=== PATIENT | female | born 1970 | race American Indian/Alaskan Native ===

== ENCOUNTER 2017-06-04 09:25 | Outpatient (CLI) | payer BC ==
[2017-06-04 10:25] LABS: Blood Urea Nitrogen 10 mg/dL (7-17)
[2017-06-04] MEDS ORDERED: NACL ONE (11:33)
--- NOTE | 2017-06-04 12:39 | Cat Scan Report ---
CT CHEST, ABDOMEN AND PELVIS WITH CONTRAST INDICATION: Malignant neoplasm of colon. COMPARISON: 11/13/2016 PET/CT. FINDINGS: Chest, abdomen and pelvis CT performed following intravenous administration of 100 cc of Omnipaque 300. Oral contrast also given. CHEST: Unremarkable heart and great vessels. No effusions or size significant adenopathy. Clear lungs. New right-sided chest port tip in the right atrium. Nonspecific distal esophageal wall prominence/thickening, not excluded for gastroesophageal reflux and/or hiatal hernia, amongst others. ABDOMEN: Subtle new diffuse fatty hepatic infiltration possible. Liver, spleen, gallbladder, pancreas, adrenals, nonaneurysmal abdominal aorta, IVC and kidneys otherwise appear within normal limits. Nonopacified GI tract evaluation limited, though grossly nonobstructive. Mild to moderate colonic stool/possible constipation. No definite significant adenopathy or ascites. PELVIS: Sigmoid anastomosis again seen. Rectosigmoid stool. Unremarkable urinary bladder. Normal uterine size. Small bilateral follicular cysts measuring up to 2.2 cm on the left. No significant free fluid or adenopathy. Healed midline ventral incision. Mild bilateral sclerosis along iliac aspects of the SI joints inferiorly. Otherwise unremarkable bones. CONCLUSION: No acute chest, abdomen and pelvic CT abnormality with few incidental findings, including sigmoid anastomosis, interval chest port placement and possible fatty liver development, amongst others, as described. Please correlate. Thank you for the opportunity to participate in this patient's care.
== END 2017-06-04 09:26 | disposition home or self-care (01) ==
LOC: CT 09:25
PROVIDERS: ATTEND Internal Medicine Hematology
DX: C18.9 Malignant neoplasm of colon, unspecified (principal); N83.02 Follicular cyst of left ovary; K63.89 Other specified diseases of intestine
CPT/HCPCS: 36415; 71260; 74177; 82565; 84520; Q9967

== ENCOUNTER 2017-08-12 08:25 | Outpatient (CLI) | payer BC ==
--- NOTE | 2017-08-12 13:20 | Cat Scan Report ---
CT chest, abdomen, pelvis with contrast: Colon cancer. Following IV and oral contrast administration sections are obtained transversely from the thoracic inlet to the ischium with coronal and sagittal 2-D reformatted images. Comparison is made to prior exams in May 2017. The chest wall is unremarkable. No axillary, hilar, or mediastinal adenopathy. Central airways are patent. The visualized pulmonary arteries show no filling defect. No pulmonary nodules and no pleural disease identified. There is a right-sided port. No change from prior study. The abdominal and retroperitoneal organs are unremarkable. The abdominal aorta is normal in size and contour. No obvious mesenteric or periaortic adenopathy. The partially opacified bowel is generally unremarkable. There is an intact sigmoid anastomosis related to colon resection. The uterus is mildly enlarged and inhomogeneous. There are adjacent or a single bilobed cyst in the left ovary with a combined size of approximately 4.5 cm. Compared to her prior exam the left ovarian cyst has enlarged but the findings are otherwise essentially unchanged. The osseous structures appear generally normal in both locations. Impression: Post sigmoid resection. No metastases identified and no significant interval changes from prior study.
== END 2017-08-12 08:26 | disposition home or self-care (01) ==
LOC: SPVIMAG 08:25
PROVIDERS: ATTEND Internal Medicine Hematology
DX: C18.9 Malignant neoplasm of colon, unspecified (principal); N85.2 Hypertrophy of uterus; N83.292 Other ovarian cyst, left side
CPT/HCPCS: 71260; 74177; Q9967

== ENCOUNTER 2017-11-12 08:30 | Outpatient (CLI) | payer BC ==
[2017-11-12 09:16] LABS: Blood Urea Nitrogen 10 mg/dL (7-17)
--- NOTE | 2017-11-12 12:07 | Cat Scan Report ---
CT CHEST WITH CONTRAST: HISTORY: Malignant neoplasm of colon. COMPARISON: 08/12/17. TECHNIQUE: Helical CT in 1.25mm intervals following IV contrast. Sagittal and coronal reformatted images. FINDINGS: Thyroid gland: Normal. Tracheobronchial tree: Normal. Esophagus: Normal. Heart: Normal. Pericardium: Normal. Mediastinum: Normal. Lung Lao: Normal. Pleural Spaces: Normal. Musculoskeletal: Normal. IMPRESSION: Unremarkable CT chest with contrast. No evidence for metastatic disease or acute process. No change since 08/12/17.
--- NOTE | 2017-11-12 12:14 | Cat Scan Report ---
CT ABDOMEN PELVIS WITH CONTRAST: HISTORY: Malignant neoplasm of colon. COMPARISON: 08/12/17. TECHNIQUE: Helical CT in 1.25mm intervals following IV contrast. Sagittal and coronal reconstructions. FINDINGS: Lung bases: Normal. Liver: Normal. Biliary system: Normal. Pancreas: Normal. Spleen: Normal. Kidneys/ureters/bladder: Normal. Adrenal glands: Normal. Aorta: Normal. Intestines: Surgical suture line near the rectosigmoid junction is again identified. No recurrent mass in this area is noted. No focal bowel wall thickening, inflammation or obstruction. Appendix: Not confidently identified. Pelvic viscera: The uterus is anteverted. Subtle, small intramural fibroids are suspected. The ovaries are unremarkable. Left ovarian cysts have resolved since the previous exam. Ascites: None. Adenopathy: None. Musculoskeletal: No suspicious bony lesion or fracture is identified. IMPRESSION: No evidence for disease recurrence or metastasis. Stable surgical changes near the rectosigmoid junction. Left ovarian cysts have resolved since 08/12/17. Mild uterine fibroid disease is suspected.
== END 2017-11-12 08:31 | disposition home or self-care (01) ==
LOC: SPVWC 08:30 → CT 08:31
PROVIDERS: ATTEND Internal Medicine Hematology
DX: C18.9 Malignant neoplasm of colon, unspecified (principal); N85.4 Malposition of uterus
CPT/HCPCS: 36415; 71260; 74177; 82565; 84520; Q9967

== ENCOUNTER 2018-02-12 09:00 | Outpatient (CLI) | payer BC ==
--- NOTE | 2018-02-12 14:01 | Cat Scan Report ---
CT CHEST, ABDOMEN AND PELVIS WITH CONTRAST: 02/12/18 08:15:00 CLINICAL: Colon cancer followup. COMPARISON: 11/12/17 TECHNIQUE: Volumetric acquisition and 1.25 millimeter scan reconstructions after the uneventful intravenous injection of 100 cc of Omnipaque 300. Consent was obtained prior to the administration of the contrast. Oral contrast was also given. FINDINGS: Chest: The lungs are clear. No pulmonary nodule or mass. However, the right apex is not entirely included on the exam. Normal aorta, heart and pulmonary arteries. A right Evbhvc-e-Teld tip is in the right atrium. Normal esophagus and trachea. No mediastinal or hilar lymphadenopathy.No axillary or supraclavicular lymphadenopathy. Abdomen: Normal liver, gallbladder and bile ducts. Normal stomach, duodenum, pancreas and spleen. Normal adrenal glands and kidneys. The renal collecting systems and ureters are nondilated. Normal aorta and inferior vena cava. No mass or lymphadenopathy.No ascites.The small bowel is normal. Normal ascending, transverse and descending colon. Normal appendix. Pelvis: Normal rectum and a normal anastomosis at the rectosigmoid junction. The sigmoid colon is normal. Normal uterus measuring 10.0 x 6.5 x 7.0 cm. Normal ovaries. A dominant follicle of the right ovary measures 2.6 cm. A dominant follicle the left ovary measures 1.8 cm. No adnexal mass or free fluid. Normal urinary bladder and rectum.. Bone windows demonstrate no suspicious bone lesion. IMPRESSION:1. Normal chest. However, the patient has been asked to return for a noncontrast CT of the right lung apex since the right lung was not entirely included on this exam. 2. Negative abdomen and pelvis status post partial colon resection. 3. No evidence of disease recurrence or metastasis.
== END 2018-02-12 09:01 | disposition home or self-care (01) ==
LOC: SPVIMAG 09:00
PROVIDERS: ATTEND Internal Medicine Hematology
DX: C18.9 Malignant neoplasm of colon, unspecified (principal); Z98.890 Other specified postprocedural states
CPT/HCPCS: 71260; 74177; Q9967; 71250

== ENCOUNTER 2019-08-31 10:03 | Outpatient (CLI) | payer BC ==
[2019-08-31 12:12] LABS: Blood Urea Nitrogen 11 mg/dL (7-17)
--- NOTE | 2019-08-31 13:31 | Cat Scan Report ---
CT CHEST WITH CONTRAST INDICATION / CLINICAL INFORMATION: C18.0 MALIGNANT NEOPLASM OF COLON. TECHNIQUE: Axial CT images were obtained through the chest after IV contrast. Sagittal and coronal reformatted i mages. All CT scans at this location are performed using CT dose reduction for ALARA by means of auto mated exposure control. COMPARISON: 03/04/2019 FINDINGS: HEART: No significant abnormality. THORACIC AORTA: No significant abnormality. MEDIASTINUM and RUPAL: No significant abnormality. LUNGS: No acute air space or interstitial disease. PLEURA: No significant pleural effusion. No pneumothorax. SKELETAL SYSTEM: No significant abnormality. UPPER ABDOMEN: No significant abnormality. ADDITIONAL FINDINGS: None. IMPRESSION: Unremarkable CT chest with contrast. No evidence for metastatic disease to the chest. Signer Name: Kenneth Lam Jr, MD Signed: 08/31/2019 1:27 PM Workstation Name: [id number]
--- NOTE | 2019-08-31 14:08 | Cat Scan Report ---
CT ABDOMEN AND PELVIS WITH CONTRAST HISTORY: C18.9 MALIGNANT NEOPLASM OF COLON UNSPECIFIED COMPARISON: 03/04/2019 TECHNIQUE: Axial CT images were obtained through the abdomen and pelvis after 100 cc of Omnipaque 300 intravenously. Sagittal and coronal reformatted images. All CT scans at this location are performed using CT dose reduction for ALARA by means of automated exposure control. FINDINGS: CT ABDOMEN: Lung Bases: Clear. Liver: No significant abnormality. Biliary: No significant abnormality. Spleen: No significant abnormality. Unenlarged. Pancreas: No significant abnormality. Adrenals: No significant abnormality. Kidneys: No significant abnormality. Lymphatics: No lymphadenopathy. Vasculature: No significant abnormality. Bowel/Peritoneum: Surgical suture line is identified in the sigmoid colon. No evidence for local recu rrence. The remaining bowel loops are unremarkable. No evidence for obstruction or focal inflammation . Normal appendix. CT PELVIS: : The uterus is mildly enlarged with multiple small enhancing fibroids measuring up to 2 cm. The ad nexa are unremarkable. The bladder and distal ureters are within normal limits. Osseous Structures: No suspicious bony lesion. Additional Findings: None IMPRESSION: No evidence for disease recurrence or metastasis in the abdomen and pelvis. Stable findings since 02/14. Signer Name: Kenneth Lam Jr, MD Signed: 08/31/2019 2:03 PM Workstation Name: [id number]
== END 2019-08-31 10:04 | disposition home or self-care (01) ==
LOC: CT 10:03
PROVIDERS: ATTEND Internal Medicine Hematology
DX: C18.9 Malignant neoplasm of colon, unspecified (principal)
CPT/HCPCS: 36415; 71260; 74177; 82565; 84520; Q9967

== ENCOUNTER 2020-03-05 09:09 | Outpatient (CLI) | payer BC ==
[2020-03-05 09:57] LABS: Blood Urea Nitrogen 11 mg/dL (7-17)
--- NOTE | 2020-03-05 11:41 | Cat Scan Report ---
CT chest, abdomen, and pelvis with/without contrast INDICATION : C18.9Malignant neoplasm of colon, unspecified, colon cancer restaging exam TECHNIQUE: 100 mL of intravenous contrast administered.. All CT scans at this location are performe d using CT dose reduction for ALARA by means of automated exposure control. COMPARISON: CT chest, abdomen, and pelvis from 08/31/2019 FINDINGS: Chest: The heart and great vessels appear normal with no pathologic mediastinal adenopathy. Likewise no pathologic axillary adenopathy. The lungs are clear. No acute osseous abnormality, metastatic dis ease, or significant DJD. Abdomen/pelvis: Surgical resection and anastomotic change again seen in the sigmoid colon distally w ith intact surgical site and no dehiscence. No small bowel obstruction, residual soft tissue mass, or surrounding pathologic adenopathy. The liver is mildly enlarged with no mass or metastatic disease. The gallbladder, spleen, pancreas, a drenals, kidneys, and proximal GI tract appear unremarkable. Urinary bladder is unremarkable. Multiple uterine fibroids again noted. No pelvic free fluid. A pessa ry device is in place within the vagina. No acute colonic abnormality identified. IMPRESSION: Stable exam with no metastatic disease identified. Signer Name: Dhiraj Ho MD Signed: 03/05/2020 11:36 AM Workstation Name: [id number]
== END 2020-03-05 09:10 | disposition home or self-care (01) ==
LOC: CT 09:09
PROVIDERS: ATTEND Internal Medicine Hematology
DX: C18.9 Malignant neoplasm of colon, unspecified (principal); R16.0 Hepatomegaly, not elsewhere classified; Z98.0 Intestinal bypass and anastomosis status; D25.9 Leiomyoma of uterus, unspecified; N80.4 Endometriosis of rectovaginal septum and vagina
CPT/HCPCS: 36415; 71260; 74177; 82565; 84520; Q9967

== ENCOUNTER 2020-12-10 10:18 | Outpatient (CLI) | payer BC ==
[2020-12-10 12:22] LABS: Blood Urea Nitrogen 10 mg/dL (7-17)
--- NOTE | 2020-12-10 13:23 | Cat Scan Report ---
CT CHEST, ABDOMEN, AND PELVIS WITH IV CONTRAST INDICATION / CLINICAL INFORMATION: COLON CANER. TECHNIQUE: Axial CT images were obtained through the chest, abdomen, and pelvis after IV contrast. All CT scans at this location are performed using CT dose reduction for ALARA by means of automated exposure contr ol. COMPARISON: 05/31/2020. FINDINGS: HEART: No significant abnormality. THORACIC AORTA: No significant abnormality. MEDIASTINUM and RUPAL: No significant abnormality. LUNGS: No acute air space or interstitial disease. Partially calcified subpleural nodule right upper lobe measures 4 mm and is stable since prior exam. PLEURA: No significant pleural effusion. No pneumothorax. ADDITIONAL CHEST FINDINGS: None. LIVER: No significant abnormality. GALLBLADDER: No significant abnormality. BILE DUCTS: No significant abnormality. PANCREAS: No significant abnormality. SPLEEN: No significant abnormality. ADRENALS: No significant abnormality. RIGHT KIDNEY / URETER: No significant abnormality. LEFT KIDNEY / URETER: No significant abnormality. STOMACH and SMALL BOWEL: No significant abnormality. No mechanical bowel obstruction. COLON: Postsurgical resection of the sigmoid colon with retained suture material stable since prior e xam. No recurrent soft tissue lesion or abnormal enhancement. APPENDIX: No significant abnormality. PERITONEUM: No free fluid. No free air. No fluid collection. LYMPH NODES: No significant adenopathy. Tiny scattered mesenteric lymph nodes are not enlarged accord ing to CT size criteria. AORTA and ARTERIES: No significant abnormality. IVC and VEINS: No significant abnormality. URINARY BLADDER: No significant abnormality. REPRODUCTIVE ORGANS: Enlarged uterus with numerous uterine fibroids unchanged from prior exam. ADDITIONAL FINDINGS: None. SKELETAL SYSTEM: No aggressive osseous lesions. IMPRESSION: 1. Stable exam when compared to prior dated 05/31/2020. Please see above for full details. Signer Name: Jose Jaramillo MD Signed: 12/10/2020 1:19 PM Workstation Name: [id number]
== END 2020-12-10 10:19 | disposition home or self-care (01) ==
LOC: CT 10:18
PROVIDERS: ATTEND Internal Medicine Hematology
DX: C18.9 Malignant neoplasm of colon, unspecified (principal); R91.1 Solitary pulmonary nodule
CPT/HCPCS: 36415; 71260; 74177; 82565; 84520; Q9967

== ENCOUNTER 2021-06-24 10:07 | Outpatient (CLI) | payer BC ==
[2021-06-24 11:10] LABS: Blood Urea Nitrogen 10 mg/dL (7-17)
--- NOTE | 2021-06-24 13:45 | Cat Scan Report ---
CT CHEST, ABDOMEN, AND PELVIS WITH CONTRAST INDICATION / CLINICAL INFORMATION: MALIGNANT NEOPLASM OF COLON/HX COLON CANCER OMNI 300 100 ML. TECHNIQUE: Axial CT images were obtained through the chest, abdomen, and pelvis after IV contrast. Al l CT scans at this location are performed using CT dose reduction for ALARA by means of automated exp osure control. COMPARISON: CT abdomen and pelvis 12/10/2020 FINDINGS: HEART: No significant abnormality. CORONARY ARTERY CALCIFICATION: None. THORACIC AORTA: No significant abnormality. MEDIASTINUM / RUPAL: No significant abnormality. PLEURA: No pleural effusion. No pneumothorax. LUNGS: No acute air space or interstitial disease. ADDITIONAL CHEST FINDINGS: None. LIVER: There is a subtle round 3.3 x 3.4 cm mildly enhancing mass seen in the posterior right hepatic lobe on series 3 image 28. GALLBLADDER: No significant abnormality. BILE DUCTS: No significant abnormality. PANCREAS: No significant abnormality. SPLEEN: No significant abnormality. ADRENALS: No significant abnormality. RIGHT KIDNEY / URETER: No significant abnormality. LEFT KIDNEY / URETER: No significant abnormality. STOMACH and SMALL BOWEL: No significant abnormality. COLON: Postsurgical changes of the distal colon. APPENDIX: No significant abnormality. PERITONEUM: No free fluid. No free air. No fluid collection. LYMPH NODES: No significant adenopathy. AORTA / ARTERIES: No significant abnormality. IVC / VEINS: No significant abnormality. URINARY BLADDER: No significant abnormality. REPRODUCTIVE ORGANS: The uterus is heterogeneous, similar to prior exam. IUD is in place. Bilateral a dnexal cysts, measuring up to 2.9 cm. ADDITIONAL FINDINGS: None. SKELETAL SYSTEM: No significant abnormality. IMPRESSION: 1. Subtle round mass in the posterior right hepatic lobe as described above is nonspecific. Recommend further evaluation with MRI with Eovist for further characterization. 2. Otherwise, there is no CT evidence of metastatic disease in the chest, abdomen, or pelvis. 3. Stable heterogeneous enlarged uterus. Bilateral adnexal cysts measuring up to 2.9 cm. Signer Name: Surjit Parrish MD Signed: 06/24/2021 1:40 PM Workstation Name: [id number]
== END 2021-06-24 10:08 | disposition home or self-care (01) ==
LOC: CT 10:07
PROVIDERS: ATTEND Internal Medicine Hematology
DX: C18.9 Malignant neoplasm of colon, unspecified (principal); R16.0 Hepatomegaly, not elsewhere classified; N85.2 Hypertrophy of uterus; N83.01 Follicular cyst of right ovary; Z97.5 Presence of (intrauterine) contraceptive device
CPT/HCPCS: 36415; 71260; 74177; 82565; 84520; Q9967

== ENCOUNTER 2021-08-01 09:16 | Outpatient (CLI) | payer BC ==
--- NOTE | 2021-08-01 14:23 | PET Report ---
PET-CT SCAN INDICATION / CLINICAL INFORMATION: C18.9. Colon cancer STAGING: Restaging TECHNIQUE: Tumor imaging, positron emission tomography (PET) with concurrently acquired computed tomography (CT) for attenuation correction and anatomical localization; Skull Base to Mid Thigh DOSE: 15.3 mCi F-18 FDG was administered IV per protocol in the right forearm GLUCOSE: Patient's blood glucose at that time was 94 mg/dL. UPTAKE TIME: PET scan performed approximately 60 minutes after radiotracer administration. CT SCAN DESCRIPTION: No oral or IV contrast.. All CT scans at this location are performed using CT do se reduction for ALARA by means of automated exposure control. COMPARISON: CT chest, abdomen, and pelvis from 06/24/2021 and 12/10/2020 FINDINGS: Background right hepatic lobe activity has a maximum SUV of 4.2. HEAD/NECK: No abnormal radiotracer uptake in the neck. Physiologic tonsillar and salivary gland activ ity noted. CHEST: No abnormal radiotracer uptake in the chest. Physiologic cardiac activity noted. ABDOMEN / PELVIS: No abnormal radiotracer uptake in the abdomen. Physiologic stomach and bowel activi ty noted. SKELETAL STRUCTURES: No hypermetabolic bone lesions. ADDITIONAL FINDINGS: No significant additional findings. IMPRESSION: 1. No metastatic disease identified. Specifically the previously questioned right hepatic lobe findin g is not visualized on this exam and there is no abnormal FDG uptake in this region. Signer Name: Dhiraj Ho MD Signed: 08/01/2021 2:19 PM Workstation Name: [id number]
== END 2021-08-01 09:17 | disposition home or self-care (01) ==
LOC: PET 09:16
PROVIDERS: ATTEND Internal Medicine Hematology
DX: C18.9 Malignant neoplasm of colon, unspecified (principal)
CPT/HCPCS: 78815; 82962; A9552

== ENCOUNTER 2021-10-14 09:51 | Outpatient (CLI) | payer BC ==
[2021-10-14 10:38] LABS: Blood Urea Nitrogen 11 mg/dL (7-17)
--- NOTE | 2021-10-14 12:01 | Cat Scan Report ---
CT abdomen pelvis w con, CT chest w con INDICATION / CLINICAL INFORMATION: MALIGNANT NEOPLASM OF COLON OMNI 300 100 M. TECHNIQUE: Axial CT images were obtained through the chest, abdomen and pelvis. All CT scans at this location ar e performed using CT dose reduction for ALARA by means of automated exposure control. COMPARISON: PET August 01, 2021. CT body June 24, 2021 FINDINGS: CHEST: Lungs: No new or enlarging pulmonary nodule. Stable 3 mm nodule along the right horizontal fissure, i mage 25 series 6, likely perifissural lymph node. No pleural effusion. No pneumothorax. Heart: No significant abnormality. Mediastinum: No significant abnormality. ADDITIONAL FINDINGS: None. ABDOMEN and PELVIS: Liver: No significant abnormality. Biliary: No significant abnormality. Spleen: No significant abnormality. Unenlarged. Pancreas: No significant abnormality. Adrenals: No significant abnormality. Kidneys: No significant abnormality. Lymphatics: No lymphadenopathy. Vasculature: No significant abnormality. Bowel: Postoperative sutures seen at the rectosigmoid junction. Normal appendix. Pelvis: Intrauterine device is present. Osseous Structures: No aggressive osseous lesion. Additional Findings: None IMPRESSION: 1. No evidence of local recurrence or metastatic disease throughout the chest, abdomen or pelvis. Signer Name: Kolby Elaine MD Signed: 10/14/2021 11:56 AM Workstation Name: [id number]
== END 2021-10-14 09:52 | disposition home or self-care (01) ==
LOC: CT 09:51
PROVIDERS: ATTEND Internal Medicine Hematology
DX: C18.9 Malignant neoplasm of colon, unspecified (principal)
CPT/HCPCS: 36415; 71260; 74177; 82565; 84520; Q9967

== ENCOUNTER 2022-04-07 10:57 | Outpatient (CLI) | payer BC ==
--- NOTE | 2022-04-07 13:55 | Cat Scan Report ---
CT CHEST WITH CONTRAST INDICATION / CLINICAL INFORMATION: C18.9 MALIGNANT NEOPLASM OF COLON,COLON CANCER. TECHNIQUE: Axial CT images were obtained through the chest after 100 cc of Omnipaque [address] scans at this location are performed using CT dose reduction for ALARA by means of automated exposure control. COMPARISON: 10/14/2021 FINDINGS: HEART: No significant abnormality. CORONARY ARTERY CALCIFICATION: None. THORACIC AORTA: No significant abnormality. MEDIASTINUM / RUPAL: No significant abnormality. PLEURA: No pleural effusion. No pneumothorax. LUNGS: No acute air space or interstitial disease. No significant change in 3 mm nodule along the rig ht minor fissure (series 602 image 43). ADDITIONAL FINDINGS: None. UPPER ABDOMEN: Please refer to concurrent CT of abdomen and pelvis for further evaluation. SKELETAL SYSTEM: No significant abnormality. IMPRESSION: 1. No findings of metastatic disease within the chest. Signer Name: Sinan Sagastume DO Signed: 04/07/2022 1:50 PM Workstation Name: [id number]
--- NOTE | 2022-04-07 14:00 | Cat Scan Report ---
CT ABDOMEN AND PELVIS WITH CONTRAST INDICATION / CLINICAL INFORMATION: C18.9 MALIGNANT NEOPLASM OF COLON,COLON CANCER. TECHNIQUE: Axial CT images were obtained through the abdomen and pelvis after 100 cc Omnipaque [address] scans at this location are performed using CT dose reduction for ALARA by means of automated exposure control. COMPARISON: 10/14/2021 FINDINGS: LOWER CHEST: No significant abnormality. AORTA / ARTERIES: No significant abnormality. IVC / VEINS: No significant abnormality. LYMPH NODES: No significant adenopathy. COLON: Postsurgical change to the sigmoid colon. Otherwise no significant abnormality. APPENDIX: No significant abnormality. STOMACH / SMALL BOWEL: No significant abnormality. PERITONEUM: No free fluid. No free air. No fluid collection. LIVER: No significant abnormality. GALLBLADDER: No significant abnormality. BILE DUCTS: No significant abnormality. PANCREAS: No significant abnormality. SPLEEN: No significant abnormality. ADRENALS: No significant abnormality. RIGHT KIDNEY / URETER: No significant abnormality. LEFT KIDNEY / URETER: No significant abnormality. URINARY BLADDER: No significant abnormality. REPRODUCTIVE ORGANS: There is a left ovarian cyst and there is an IUD within the uterus, otherwise th e uterus and ovaries are unremarkable. SKELETAL SYSTEM: No significant abnormality. ADDITIONAL FINDINGS: None. IMPRESSION: 1. No evidence of disease recurrence or metastatic disease within the abdomen or pelvis. Signer Name: Sinan Sagastume DO Signed: 04/07/2022 1:55 PM Workstation Name: [id number]
== END 2022-04-07 10:58 | disposition home or self-care (01) ==
LOC: CT 10:57
PROVIDERS: ATTEND Internal Medicine Hematology
DX: C18.9 Malignant neoplasm of colon, unspecified (principal); R53.83 Other fatigue; N83.202 Unspecified ovarian cyst, left side; Z97.5 Presence of (intrauterine) contraceptive device
CPT/HCPCS: 71260; 74177; Q9967